=== PATIENT | male | born 1955 | race Caucasian/White ===

== ENCOUNTER 2017-09-04 05:27 | Day surgery (SDC) | payer BC ==
[2005-03-24 15:49] VITALS: BP 154/88
[~2017-09-04] VITALS: Ht 180.3 cm; Wt 81.4 kg
[~2017-09-04 05:27] MED LIST: PROTONIX 40MG T40 MG PO
[2017-09-04] MEDS ORDERED: NORVASC 10MG10 MG PO (06:11)
[2017-09-04] MEDS ORDERED: EXCEDRIN1 TAB PO (06:12)
[2017-09-04] MEDS ORDERED: B COMPLEX #11 TA1 PO (06:13)
[2017-09-04] MEDS ORDERED: FOLIC ACID0.8 MG PO (06:14)
[2017-09-04] MEDS ORDERED: FLONASEALLERGY NS (06:14)
[2017-09-04] MEDS ORDERED: MOTRIN 800800 MG/TAB PO (06:15)
[2017-09-04] MEDS ORDERED: MULTI VITAMINS1 TAB PO (06:15)
[2017-09-04] MEDS ORDERED: ZOCOR 20MG20 MG PO (06:16)
[2017-09-04] MEDS ORDERED: NATURAL E400 IU PO (06:17)
[2017-09-04] MEDS ORDERED: TURMERIC500 MG PO (06:17)
[2017-09-04 06:35] VITALS: BP 147/67; PULSE 62; TEMP 98
[2017-09-04 08:30] VITALS: BP 136/72; PULSE 56; TEMP 96.8
[2017-09-04] MEDS ORDERED: COLACE 100100 MG/CAP PO (08:33)
[2017-09-04] MEDS ORDERED: NORCO 325 MG-51 TAB PO (08:33)
[2017-09-04 08:45] VITALS: BP 141/71; PULSE 58
== END 2017-09-04 09:20 | disposition home or self-care (01) ==
LOC: SDCO 05:27
DX: C43.61 Malignant melanoma of right upper limb, including shoulder (principal); Z79.899 Other long term (current) drug therapy; Z79.82 Long term (current) use of aspirin; I10 Essential (primary) hypertension; K21.9 Gastro-esophageal reflux disease without esophagitis; Z80.3 Family history of malignant neoplasm of breast
CPT/HCPCS: J0690; J2704; J3010; J7120

== ENCOUNTER 2017-09-12 06:30 | Day surgery (SDC) | payer BC ==
[2005-03-24 15:49] VITALS: BP 154/88
[~2017-09-12] VITALS: Ht 180.3 cm; Wt 80.7 kg
[~2017-09-12 06:30] MED LIST changes: +B COMPLEX #11 TA1 PO; +COLACE 100100 MG/CAP PO; +EXCEDRIN1 TAB PO; +FLONASEALLERGY NS; +FOLIC ACID0.8 MG PO; +MOTRIN 800800 MG/TAB PO; +MULTI VITAMINS1 TAB PO; +NATURAL E400 IU PO; +NORCO 325 MG-51 TAB PO; +NORVASC 10MG10 MG PO; +TURMERIC500 MG PO; +ZOCOR 20MG20 MG PO
[2017-09-12 10:03] VITALS: BP 154/69; PULSE 70; TEMP 98
[2017-09-12] MEDS ORDERED: NORCO 325 MG-51 TAB PO (12:57)
[2017-09-12 13:30] VITALS: BP 137/77; PULSE 60; TEMP 98.3
[2017-09-12 13:45] VITALS: BP 138/76; PULSE 63
[2017-09-12 14:00] VITALS: BP 130/67; PULSE 68
[2017-09-12 14:15] VITALS: BP 137/68; PULSE 64
[2017-09-12 14:30] VITALS: BP 133/66; PULSE 64
== END 2017-09-12 15:10 | disposition home or self-care (01) ==
LOC: SDCO 06:30
DX: C43.61 Malignant melanoma of right upper limb, including shoulder (principal); E78.5 Hyperlipidemia, unspecified; K21.9 Gastro-esophageal reflux disease without esophagitis; Z79.82 Long term (current) use of aspirin; Z79.899 Other long term (current) drug therapy; Z80.3 Family history of malignant neoplasm of breast
CPT/HCPCS: A9541; J0690; J2405; J2704; J3010; J7120

== ENCOUNTER → 2017-10-12 | Outpatient (CLI) | payer BC | LOC: COL.RAD 09:44 | DX: Z01.89 Encounter for other specified special examinations (principal) ==

== ENCOUNTER 2019-05-31 05:58 | Day surgery (SDC) | payer BC ==
[2005-03-24 15:49] VITALS: BP 154/88
[~2019-05-31] VITALS: Ht 180.3 cm; Wt 82.5 kg
[2019-05-31 06:41] VITALS: BP 140/84; PULSE 68; TEMP 97.8
[2019-05-31 07:35] VITALS: BP 122/70; PULSE 62; TEMP 97.8
--- NOTE | 2019-05-31 07:35 | NUR ---
Pt returned via cart to [facility]. Ambulated with SBA to recliner in bay. VSS-documented. Given a sprite and muffin per request. Call light in reach.
[2019-05-31 07:39] VITALS: TEMP 97.8
[2019-05-31 07:50] VITALS: BP 119/81; PULSE 61
[2019-05-31 08:05] VITALS: BP 114/7; PULSE 59
[2019-05-31 08:20] VITALS: BP 128/76; PULSE 60
--- NOTE | 2019-05-31 08:42 | NUR ---
VS remain stable-see flowsheet. Tolerated a muffin and sprite. Denies complaints. Dr Oliveira in to see pt post procedure. IV removed, pt dressed. Discharge teaching completed, verbalized understanding. Taken via wheelchair to private vehicle for dc home with friend, Oscar, to drive pt home.
== END 2019-05-31 08:42 | disposition home or self-care (01) ==
LOC: SDCO 05:58
DX: Z12.11 Encounter for screening for malignant neoplasm of colon (principal); K57.30 Diverticulosis of large intestine without perforation or abscess without bleeding; K64.0 First degree hemorrhoids; K21.0 Gastro-esophageal reflux disease with esophagitis; Z88.8 Allergy status to other drugs, medicaments and biological substances; Z83.71 Family history of colonic polyps
CPT/HCPCS: J2250; J3010; J7030